=== PATIENT | male | born 2000 | race Caucasian/White ===

== ENCOUNTER 2019-06-07 16:02 | Emergency (ER) | payer SELFPAY ==
[2019-06-07] MEDS ORDERED: TETANUS & DIPHTHERIA TOX,ADULT 0.5 ML VIAL ONE (16:15)
[2019-06-07] MEDS ORDERED: LIDOCAINE 1% MPF 5 ML VIAL ONE (17:02)
--- NOTE | 2019-06-07 17:19 | EDPHYS ---
Physician Documentation [facility] Name: Benji Epstein Age: 18 yrs Sex: Male : 2000 Arrival Date: 06/07/2019 Time: 16:04 Bed 23 Private MD: ED Physician Gurjit Montero HPI: 06/07 16:08 This 18 yrs old Male presents to ER via Ambulatory with complaints of kb Puncture Wound To Hand. 16:08 The patient or guardian reports injury, a laceration, a puncture wound. The complaints kb affect the palm of left hand. Context: The problem was sustained outdoors, resulted from jumping fence and it went into his hand. Onset: The symptoms/episode began/occurred just prior to arrival. Modifying factors: The symptoms are alleviated by nothing, the symptoms are aggravated by nothing. Associated signs and symptoms: The patient has no apparent associated signs or symptoms. Severity of symptoms: At their worst the symptoms were mild, moderate, in the emergency department the symptoms are unchanged. The patient has not experienced similar symptoms in the past. The patient has not recently seen a physician. Pt reports he jumped a fence and it punctured the palm of his hand. Historical: - Allergies: 16:08 No Known Allergies; sg - Home Meds: 16:08 None [Active]; sg - PMHx: 16:08 None; sg - PSHx: 16:08 None; sg - Immunization history:: Last tetanus immunization: unknown. - Social history:: Smoking status: Patient/guardian denies using tobacco. - Ebola Screening: : Patient negative for fever greater than or equal to 101.5 degrees Fahrenheit, and additional compatible Ebola Virus Disease symptoms Patient denies exposure to infectious person Patient denies travel to an Ebola-affected area in the 21 days before illness onset No symptoms or risks identified at this time. ROS: 16:08 Constitutional: Negative for fever, chills, and weight loss, Neck: Negative for injury, kb pain, and swelling, Cardiovascular: Negative for chest pain, palpitations, and edema, Respiratory: Negative for shortness of breath, cough, wheezing, and pleuritic chest pain, Abdomen/GI: Negative for abdominal pain, nausea, vomiting, diarrhea, and constipation, Back: Negative for injury and pain, MS/Extremity: Negative for injury and deformity, Neuro: Negative for headache, weakness, numbness, tingling, and seizure. 16:08 Skin: Positive for laceration(s), puncture, of the palm of left hand. Exam: 16:07 Constitutional: This is a well developed, well nourished patient who is awake, alert, kb and in no acute distress. ENT: Nares patent. No nasal discharge, no septal abnormalities noted. Tympanic membranes are normal and external auditory canals are clear. Oropharynx with no redness, swelling, or masses, exudates, or evidence of obstruction, uvula midline. Mucous membranes moist. Neck: Trachea midline, no thyromegaly or masses palpated, and no cervical lymphadenopathy. Supple, full range of motion without nuchal rigidity, or vertebral point tenderness. No Meningismus. Chest/axilla: Normal chest wall appearance and motion. Nontender with no deformity. No lesions are appreciated. Cardiovascular: Regular rate and rhythm with a normal S1 and S2. No gallops, murmurs, or rubs. Normal PMI, no JVD. No pulse deficits. Respiratory: Lungs have equal breath sounds bilaterally, clear to auscultation and percussion. No rales, rhonchi or wheezes noted. No increased work of breathing, no retractions or nasal flaring. Abdomen/GI: Soft, non-tender, with normal bowel sounds. No distension or tympany. No guarding or rebound. No evidence of tenderness throughout. Back: No spinal tenderness. No costovertebral tenderness. Full range of motion. MS/ Extremity: Pulses equal, no cyanosis. Neurovascular intact. Full, normal range of motion. Neuro: Awake and alert, GCS 15, oriented to person, place, time, and situation. Cranial nerves II-XII grossly intact. Motor strength 5/5 in all extremities. Sensory grossly intact. Cerebellar exam normal. Normal gait. 16:07 Skin: injury, laceration(s), the wound is approximately 1 cm(s), of the palm of left hand, that can be described as clean, no foreign body, linear, without bleeding. Vital Signs: 16:09 BP 142 / 77; Pulse 88; Resp 18; Temp 98.6; Pulse Ox 100% on R/A; Pain 6/10; sg 17:30 BP 135 / 78; Pulse 80; Resp 18; Temp 98; Pulse Ox 100% on R/A; mg2 Laceration: 17:20 Wound Repair of 1cm ( 0.4in ) subcutaneous laceration to palm of left hand. Linear kb shaped.. Distal neuro/vascular/tendon intact. Anesthesia: Wound infiltrated with 1 mls of 1% lidocaine. Wound prep: Extensive cleansing with hibiclenz by me, Wound irrigation with saline by me. Skin closed with 2 4-0 Prolene using simple sutures and sterile technique. Dressed with Neosporin, bandaid. Patient tolerated well. MDM: 16:04 Patient medically screened. kb 16:07 Data reviewed: vital signs, nurses notes. Data interpreted: Pulse oximetry: on room air kb is 100 %. Interpretation: normal. 17:17 Counseling: I had a detailed discussion with the patient and/or guardian regarding: the kb historical points, exam findings, and any diagnostic results supporting the discharge/admit diagnosis, the need for outpatient follow up, a family practitioner, to return to the emergency department if symptoms worsen or persist or if there are any questions or concerns that arise at home. 06/07 16:07 Order name: [facility]. Order: soak hand in 50/50 mixture of betadine and NS for 20 minutes; kb Complete Time: 16:18 Administered Medications: 16:42 Not Given (Patient Refused): Tetanus-Diphtheria Toxoid Adult 0.5 ml IM once mg2 Disposition: 06/07/19 17:18 Discharged to Home. Impression: Laceration without foreign body of left hand. - Condition is Stable. - Discharge Instructions: Laceration Care, Adult, [id number]. - Medication Reconciliation Form, Thank You Letter, Antibiotic Education, Prescription Opioid Use form. - Follow up: Emergency Department; When: As needed; Reason: Worsening of condition. Follow up: Private Physician; When: 2 - 3 days; Reason: Recheck today's complaints, Continuance of care, Re-evaluation by your physician. - Notes: Have sutures removed in 10 days Addendum: 06/14/2019 07:24 Co-signature as Attending Physician, Gurjit Montero MD I agree with the assessment and c hunter plan of care. Signatures: Dispatcher [employer] EDCecilia Saavedra, ANDIEC VALORIE-Addy Aguilar RN RN sg Anderson, Corey, MD MD cha Gardose, Michele, RN RN mg2 Corrections: (The following items were deleted from the chart) 06/07 16:23 16:07 Hand Left 3 View+RAD.RAD.BRZ ordered. EDMS EDMS 17:31 17:18 06/07/2019 17:18 Discharged to Home. Impression: Laceration without foreign body mg2 of left hand. Condition is Stable. Forms are Medication Reconciliation Form, Thank You Letter, Antibiotic Education, Prescription Opioid Use. Follow up: Emergency Department; When: As needed; Reason: Worsening of condition. Follow up: Private Physician; When: 2 - 3 days; Reason: Recheck today's complaints, Continuance of care, Re-evaluation by your physician. kb
--- NOTE | 2019-06-07 17:19 | ER ---
Nurse's Notes [facility] Name: Benji Epstein Age: 18 yrs Sex: Male : 2000 Arrival Date: 06/07/2019 Time: 16:04 Bed 23 Private MD: Diagnosis: Laceration without foreign body of left hand Presentation: 06/07 16:07 Presenting complaint: Patient states: Jumped a fence, laceration to left palm, reports sg pain and bleeding. Transition of care: patient was not received from another setting of care. Onset of symptoms was June 07, 2019. Risk Assessment: Do you want to hurt yourself or someone else? Patient reports no desire to harm self or others. Initial Sepsis Screen: Does the patient meet any 2 criteria? No. Patient's initial sepsis screen is negative. Does the patient have a suspected source of infection? No. Patient's initial sepsis screen is negative. Care prior to arrival: None. 16:07 Method Of Arrival: Ambulatory sg 16:07 Acuity: DAVID 4 sg Historical: - Allergies: 16:08 No Known Allergies; sg - Home Meds: 16:08 None [Active]; sg - PMHx: 16:08 None; sg - PSHx: 16:08 None; sg - Immunization history:: Last tetanus immunization: unknown. - Social history:: Smoking status: Patient/guardian denies using tobacco. - Ebola Screening: : Patient negative for fever greater than or equal to 101.5 degrees Fahrenheit, and additional compatible Ebola Virus Disease symptoms Patient denies exposure to infectious person Patient denies travel to an Ebola-affected area in the 21 days before illness onset No symptoms or risks identified at this time. Screenin:47 Abuse screen: Denies threats or abuse. Denies injuries from another. Nutritional mg2 screening: No deficits noted. Tuberculosis screening: No symptoms or risk factors identified. Fall Risk None identified. Assessment: 16:42 General: Appears in no apparent distress. comfortable, Behavior is calm, cooperative. mg2 Pain: Complains of pain in palm of left hand. Neuro: Level of Consciousness is awake, alert, obeys commands, Oriented to person, place, time, situation. Cardiovascular: Capillary refill < 3 seconds. Respiratory: Airway is patent Respiratory effort is even, unlabored, Respiratory pattern is regular, symmetrical. GI: No signs and/or symptoms were reported involving the gastrointestinal system. : No signs and/or symptoms were reported regarding the genitourinary system. EENT: No signs and/or symptoms were reported regarding the EENT system. Derm: Wound noted palm of left hand. Musculoskeletal: Circulation, motion, and sensation intact. Capillary refill < 3 seconds. Injury Description: Puncture sustained to palm of left hand. 17:30 Reassessment: patient refused for tetanus shot and xray. mg2 Vital Signs: 16:09 BP 142 / 77; Pulse 88; Resp 18; Temp 98.6; Pulse Ox 100% on R/A; Pain 6/10; sg 17:30 BP 135 / 78; Pulse 80; Resp 18; Temp 98; Pulse Ox 100% on R/A; mg2 ED Course: 16:04 Patient arrived in ED. mr 16:04 Cecilia [facility]C [facility]. kb 16:04 Gurjit Montero MD is Attending Physician. kb 16:08 Triage completed. sg 16:08 Arm band placed on. sg 16:10 Justin Mills, BELIA is Primary Nurse. mg2 16:47 Patient did not have IV access during this emergency room visit. mg2 17:29 Assist provider with laceration repair on palm of left hand that was 2.5 cm. or less mg2 using sutures. Set up tray. Performed by Cecilia FLOWERS Dressed with 4X4s, Patient tolerated well. 1 stitch done. 17:30 Patient has correct armband on for positive identification. mg2 Administered Medications: 16:42 Not Given (Patient Refused): Tetanus-Diphtheria Toxoid Adult 0.5 ml IM once mg2 Outcome: 17:18 Discharge ordered by . kb 17:31 Discharged to home ambulatory, with family. mg2 17:31 Condition: stable 17:31 Discharge instructions given to patient, Instructed on discharge instructions, follow up and referral plans. wound care, Demonstrated understanding of instructions, follow-up care, wound care. 17:31 Patient left the ED. mg2 Signatures: Cecilia Rodriguez FNP-C FNP-Addy Aguilar, RN RN Suzy Cheek mr Justin Mills, BELIA CELAYA mg2
[2019-06-07 17:44] VITALS: O2SAT 100
[2019-06-07 17:45] VITALS: BP 135/78; TEMP 98
== END 2019-06-07 17:31 | disposition home or self-care (01) ==
LOC: ER 16:02
PROC: 0JQK0ZZ Repair Left Hand Subcutaneous Tissue and Fascia, Open Approach (ICD-10-PCS; principal; 2019-06-07)
DX: S61.432A Puncture wound without foreign body of left hand, initial encounter (principal); W22.8XXA Striking against or struck by other objects, initial encounter; Y93.89 Activity, other specified; Y92.9 Unspecified place or not applicable
CPT/HCPCS: 90714; 99283

== ENCOUNTER 2019-12-04 12:08 | Emergency (ER) | payer BC, SELFPAY ==
--- NOTE | 2019-12-04 14:04 | ER ---
Nurse's Notes [facility] Name: Benji Epstein Age: 19 yrs Sex: Male : 2000 Arrival Date: 12/04/2019 Time: 12:12 Bed DIS10 Private MD: Diagnosis: Person with feared health complaint in whom no diagnosis is made Presentation: 12/03 12:40 Chief complaint: Patient states: I have no symptoms. My step sister who tested positive ca1 for Covid came to visit us on Friday, I work at [employer], she was there to eat and I think I had like an hour contact with her. Coronavirus screen: Proceed with normal triage. Patient denies a cough. Patient denies shortness of breath or difficulty breathing. Patient denies measured and/or subjective temperature greater than 100.4F prior to today's visit. Patient denies travel on a cruise ship or to a country the [facility] currently lists as an affected area. Patient reports contact with known and/or suspected case of COVID-19. Surgical mask in place, instructed to keep at all times and distance self from others in the lobby. Verbalized understanding. Ebola Screen: Patient negative for fever greater than or equal to 101.5 degrees Fahrenheit, and additional compatible Ebola Virus Disease symptoms Patient denies exposure to infectious person. Patient denies travel to an Ebola-affected area in the 21 days before illness onset. No symptoms or risks identified at this time. Initial Sepsis Screen: Does the patient meet any 2 criteria? No. Patient's initial sepsis screen is negative. Does the patient have a suspected source of infection? No. Patient's initial sepsis screen is negative. Risk Assessment: Do you want to hurt yourself or someone else? Patient reports no desire to harm self or others. Onset of symptoms was December 04, 2019. 12:40 Method Of Arrival: Ambulatory ca1 12:40 Acuity: DAVID 4 ca1 Triage Assessment: 14:16 General: Appears in no apparent distress. Behavior is calm, cooperative. iw Historical: - Allergies: 12:43 No Known Allergies; ca1 - Home Meds: 12:43 None [Active]; ca1 - PMHx: 12:43 None; ca1 - PSHx: 12:43 None; ca1 - Immunization history:: Adult Immunizations. - Social history:: Smoking status: Reported history of juuling and/or vaping. - Family history:: not pertinent. - Hospitalizations: : No recent hospitalization is reported. Screenin:16 Abuse screen: Denies threats or abuse. Denies injuries from another. Nutritional iw screening: No deficits noted. Tuberculosis screening: No symptoms or risk factors identified. Fall Risk None identified. Assessment: 13:50 General: Appears in no apparent distress. comfortable, Behavior is calm, cooperative. iw Pain: Denies pain. Neuro: Level of Consciousness is awake, alert, obeys commands, Oriented to person, place, time, situation, Moves all extremities. Full function. Cardiovascular: Patient's skin is warm and dry. Respiratory: Respiratory effort is even, unlabored, Respiratory pattern is regular, symmetrical. GI: No signs and/or symptoms were reported involving the gastrointestinal system. Derm: Skin is intact, is healthy with good turgor. Musculoskeletal: Range of motion: intact in all extremities. Vital Signs: 12:40 BP 114 / 75; Pulse 95; Resp 16 S; Temp 97.6(TE); Pulse Ox 97% on R/A; Weight 88.45 kg ca1 (R); Height 5 ft. 10 in. (177.80 cm) (R); 12:40 Body Mass Index 27.98 (88.45 kg, 177.80 cm) ca1 ED Course: 12:12 Patient arrived in ED. ag5 12:43 Triage completed. ca1 12:43 Arm band placed on right wrist. ca1 13:22 Miladis Lee RN is Primary Nurse. iw 13:22 Quinton Oliveira MD is Attending Physician. rn 13:50 Patient has correct armband on for positive identification. iw 14:16 No provider procedures requiring assistance completed. Patient did not have IV access iw during this emergency room visit. Administered Medications: No medications were administered Outcome: 14:03 Discharge ordered by . rn 14:16 Medical screen evaluation completed per provider. Patient declined treatment. iw 14:16 Condition: good 14:16 Following a medical screening exam, the patient was provided information regarding iw alternative care sites and resources available per registration personnel. 14:17 Patient left the ED. iw Signatures: Miladis Lee RN RN iw Quinton Oliveira MD MD rn Acob, Cheryl, RN RN ca1 Corby Thurston ag5 Corrections: (The following items were deleted from the chart) 12:47 12:40 Chief complaint: Patient states: I have no symptoms. My step sister came to visit [facility] us on Friday, I work at [employer], she was there to eat and I think I had like an hour contact with her. ca1
--- NOTE | 2019-12-04 14:04 | EDPHYS ---
Physician Documentation [facility] Name: Benji Epstein Age: 19 yrs Sex: Male : 2000 Arrival Date: 12/04/2019 Time: 12:12 Bed DIS10 Private MD: ED Physician Quinton Oliveira HPI: 12/03 13:59 This 19 yrs old Male presents to ER via Ambulatory with complaints of R/O rn COVID. 13:59 Reports may have been exposed to someone who tested positive recently. Asymptomatic, rn just wants to know if has it.. Severity of symptoms:. The patient has not experienced similar symptoms in the past. The patient has not recently seen a physician. Historical: - Allergies: 12:43 No Known Allergies; ca1 - Home Meds: 12:43 None [Active]; ca1 - PMHx: 12:43 None; ca1 - PSHx: 12:43 None; ca1 - Immunization history:: Adult Immunizations. - Social history:: Smoking status: Reported history of juuling and/or vaping. - Family history:: not pertinent. - Hospitalizations: : No recent hospitalization is reported. ROS: 13:59 Constitutional: Negative for fever, chills, and weight loss, Eyes: Negative for injury, rn pain, redness, and discharge, ENT: Negative for injury, pain, and discharge, Cardiovascular: Negative for chest pain, palpitations, and edema, Respiratory: Negative for shortness of breath, cough, wheezing, and pleuritic chest pain, Abdomen/GI: Negative for abdominal pain, nausea, vomiting, diarrhea, and constipation, MS/Extremity: Negative for injury and deformity, Skin: Negative for injury, rash, and discoloration, Neuro: Negative for headache, weakness, numbness, tingling, and seizure. Exam: 13:59 Constitutional: This is a well developed, well nourished patient who is awake, alert, rn and in no acute distress. Neck: Supple, full range of motion without nuchal rigidity Respiratory: Speaking full sentences. No increased work of breathing, no retractions or nasal flaring. Neuro: Awake and alert, GCS 15 Vital Signs: 12:40 BP 114 / 75; Pulse 95; Resp 16 S; Temp 97.6(TE); Pulse Ox 97% on R/A; Weight 88.45 kg ca1 (R); Height 5 ft. 10 in. (177.80 cm) (R); 12:40 Body Mass Index 27.98 (88.45 kg, 177.80 cm) ca1 MDM: 13:22 Patient medically screened. rn 13:59 Differential Diagnosis COVID exposure. Data reviewed: vital signs, nurses notes, and as rn a result, I will discharge patient. ED course: Pt medically screened, chooses to leave for drive-thru testing center instead of testing here. . Administered Medications: No medications were administered Disposition: 12/04/19 14:03 Discharged to Home as Medical Screen. Impression: Person with feared health complaint in whom no diagnosis is made. - Condition is Stable. - Discharge Instructions: COVID-19. - Medication Reconciliation Form, Thank You Letter, Antibiotic Education, Prescription Opioid Use form. - Follow up: Private Physician; When: As needed; Reason: Recheck today's complaints, Re-evaluation by your physician. - Problem is new. - Symptoms are unchanged. Signatures: Miladis Lee RN RN iw Quinton Oliveira MD MD rn AcRadha azevedo RN RN ca1 Corrections: (The following items were deleted from the chart) 14:17 14:03 12/04/2019 14:03 Discharged to Home as Medical Screen. Impression: Person with iw feared health complaint in whom no diagnosis is made. Condition is Stable. Forms are Medication Reconciliation Form, Thank You Letter, Antibiotic Education, Prescription Opioid Use. Follow up: Private Physician; When: As needed; Reason: Recheck today's complaints, Re-evaluation by your physician. Problem is new. Symptoms are unchanged. rn
[2019-12-04 14:34] VITALS: BP 114/75; TEMP 97.6; O2SAT 97
== END 2019-12-04 14:17 | disposition home or self-care (01) ==
LOC: ER 12:08
DX: Z71.1 Person with feared health complaint in whom no diagnosis is made (principal)
CPT/HCPCS: 99281